=== PATIENT | male | born 1975 | race Two or more races ===

== ENCOUNTER 2020-10-18 06:46 | Emergency (ER) | payer SELFPAY ==
[2020-10-18 07:42] VITALS: BP 146/84; PULSE 97; RESP 18; TEMP 37.1; O2SAT 95; BMI 44.3
[2020-10-18] MEDS: Lidocaine HCl 1 % 20 ML VIAL INFILTRATI (08:28)
--- NOTE | 2020-10-18 08:28 | PC.NURSE ---
PT WAS EVAL BY AND LG ABSCESS WAS DRAINED APPROX 150ML OF BLOOD AND PUS WAS SUCTIONED, CULTURE OBTAINED
--- NOTE | 2020-10-18 08:37 | ED.GENADULT ---
HPI - General Adult General Chief complaint: Skin/Abscess/Foreign Body Stated complaint: Cyst Time Seen by Provider: 10/18/20 07:25 Source: patient Mode of arrival: ambulatory Limitations: no limitations History of Present Illness HPI narrative: 45-year-old male with history diabetes who presents the emergency department for evaluation of a recurrence since to the back of his neck. Patient states for the past 3 days he has noticed a painful swollen area to the back of his neck. He states that the area has gotten very large. He states that the pain is a constant, throbbing pain which is moderate in intensity. He denied fever, chills, nausea, vomiting, weakness or fatigue. He states that he had a similar abscess approximately 1 year prior which drained by itself. He did follow-up with a kitchen steward to told to take antibiotics which he did for several months. Related Data Previous Rx's Medication Instructions Recorded cephalexin [Keflex] 500 mg PO QID 7 Days #28 cap 10/18/20 oxycodone 5 mg PO Q4H PRN #14 tab 10/18/20 Allergies Allergy/AdvReac Type Severity Reaction Status Date / Time No Known Allergies Allergy Verified 10/18/20 07:42 [facility] Past Medical History Medical History Diabetes Social History Social History Advance Directives: No Advance Directives Information Provided: No Physical Exam Vital Signs: Vital Signs: Last Vital Signs Temp 98.8 F 10/18/20 07:42 Pulse 97 10/18/20 07:42 Resp 18 10/18/20 07:42 BP 146/84 H 10/18/20 07:42 Pulse Ox 95 10/18/20 07:42 Body Mass Index 44.3 Const: General: cooperative and healthy appearing Nutritional Appearance: obese Orientation/consciousness: oriented to person and oriented to place Limitations: no limitations HENMT: Head: Yes other (8 x 10 firm mass/induration/flocculence, irregular skin breakdown, erythema) Ears: hearing grossly normal bilaterally General nose exam: Normal external nose present Face and sinus: Yes normal facial exam Skin: General skin exam: other (Erythema with increased warmth over the posterior neck mass) Neuro: General: oriented to person and oriented to place Course Course Course Narrative: 45-year-old male with history of diabetes with her current abscess to the posterior aspect of his neck. I did discuss the I and D procedure the patient did give me verbal consent, please see the procedure note. The patient had very thick indurated skin and I had to make 2 incisions before I could isolate the abscess pocket. Approximately 50 cc of purulent material was expressed from the incision, I did break down adhesions within the wound using a in car catheter. Patient was packed with half-inch iodoform gauze packing. The patient was given ibuprofen Tylenol and Keflex here in the emergency department. He was started on Keflex 500 mg 4 times a day for 7 days. The patient will be referred to the on-call surgeon for re-evaluation and packing removal. He was given verbal and printed instructions on abscesses and discharged home. Mass PAT was done, the patient has no prescriptions for narcotics over the past year Procedures Abscess I/D Site: neck (Central, Posterior aspect of neck) Local Anesthetic: lidocaine 1% Technique: incised with blade Sent for culture/gram staining?: Yes Irrigation: No Packing used?: iodoform (1/2 inch ) Complications: bleeding (Minimal) Discharge Plan Discharge Clinical Impression: Abscess, Encounter for incision and drainage procedure Cellulitis Qualifiers: Site of cellulitis: neck Qualified Code(s): L03.221 - Cellulitis of neck Patient Disposition: Home, Self-Care Instructions: Abscess (ED) Additional Instructions: Abscess Discharge Instructions You were treated today for an abscess( collection of pus under the skin). The abscess was cut, the pus was drained out and the abscess and the wound was packed with a piece of gauze packing. Change the outside gauze daily or if it gets soaked through with pus or blood. Try not to pull out the gauze packing when you remove the outside gauze. The gauze packing needs to stay in place for 2-3 days to help the pus drain out of the abscess. If the gauze falls out before 3 days and it DOES NOT need to be replaced. You need to follow-up with the on-call surgeon for re-evaluation in 2-3 days and to have the packing removed. Take Keflex 500mg pills, one pill 4 times a day for 7 days. This is an antibiotic that will help fight the infection. Take ibuprofen 200mg pills, 3 pills every 6 hours as needed for pain, Also take Tylenol(acetaminophen) 325 mg pills, 2 pills every 4 hours as needed for pain. For pain not relieved by ibuprofen or Tylenol take oxycodone 5 mg pills, 1 pill every 4 hours as needed for pain. This is a narcotic medication and can cause addiction. If you are concerned about addiction do not get this medication filled or ask the pharmacist for less pills. Apply warm compresses or a heating pad on low for 15 minutes 4-6 times a day. This increases the blood flow to the area and helps the healing process. Watch for signs of worsening infection which include fever, increased pain, increased redness or increased swelling, red lines traveling away from the wound. IF you think the infection is getting worse or if you develop any new symptoms that are concerning you, then return to the Emergency Department or follow up with your doctor for a recheck. Please follow up with on-call surgeon in 2-3 days for a recheck. Prescriptions: New cephalexin [Keflex] 500 mg capsule 500 mg PO QID 7 Days Qty: 28 RF: 0 oxycodone 5 mg tablet 5 mg PO Q4H PRN (Reason: pain) Qty: 14 RF: 0
[2020-10-18] MEDS: Ibuprofen 600 MG TABLET PO (08:47)
[2020-10-18] MEDS: cephALEXin 500 MG CAPSULE PO (08:47)
[2020-10-18] MEDS: Acetaminophen 325 MG TABLET 975 MG PO (08:47)
== END 2020-10-18 09:10 | disposition home or self-care (01) ==
PROVIDERS: Emergency Provider Emergency Medicine Emergency Medical Services
DX: L02.11 Cutaneous abscess of neck (principal); L03.221 Cellulitis of neck
CPT/HCPCS: 10060; 87071; 87205; 99282; 99284

== ENCOUNTER → 2020-10-20 12:51 | Outpatient (BNVA) | payer SELFPAY | PROVIDERS: Visit Provider Surgery | DX: Z09 Encounter for follow-up examination after completed treatment for conditions other than malignant neoplasm (principal); Z87.2 Personal history of diseases of the skin and subcutaneous tissue | CPT/HCPCS: 99202 ==